=== PATIENT | male | born 1950 | race Caucasian/White ===

== ENCOUNTER → 2023-11-14 08:28 | Outpatient (CLI) | payer OTHER, SELFPAY ==
--- NOTE | 2023-11-14 | DI.ECHO.S_ITS ---
[facility]+ [facility] : : [address] : : [place] : : [id number] : : Phone: [phone] Echocardiogram Report + + :Name: GUSTAVO JALLOH Study Date: 11/14/2023 Height: 70 in : :Hospital ReadingLocation: Weight: 260 lb : : Gender: Male BSA: 2.3 m2 : :: 1950 Age: 73 yrs BP: 138/91 mmHg: :Reason For Study: SCREENING, AFIB : :Ordering Physician: PANTERA, : :DIAMOND Performed By: Lydia Golden : :Referring: NITA SAMSON : + + Interpretation Summary Moderately dilated left ventricle with ejection fraction 55-60%. Mildly dilated right ventricle with normal right ventricular systolic function. The left atrium is severely dilated. The right atrium is mildly dilated. The aortic valve is slightly calcified. Mild aortic regurgitation. Mild mitral regurgitation. The ascending aorta is mildly enlarged. Procedure: A two-dimensional transthoracic echocardiogram with color flow and Doppler was performed. The study quality was technically adequate. There is no prior echocardiogram noted for this patient. The patient was in atrial fibrillation with heart rates between 64-82 bpm during the exam. Left Ventricle: The left ventricle is moderately dilated. There is mild concentric left ventricular hypertrophy. The ejection fraction is estimated to be 55-60%. There are no focal wall motion abnormalities. Diastolic function could not be accurately assessed due to atrial fibrillation. Right Ventricle: The right ventricle is mildly dilated. The right ventricular systolic function is normal. Atria: The left atrium is severely dilated. The right atrium is mildly dilated. There is no Doppler evidence for an interatrial shunt. Mitral Valve: The mitral valve leaflets appear mildly thickened, but open well. There is mild mitral regurgitation. Aortic Valve: The aortic valve is trileaflet. The aortic valve is slightly calcified. There is mild aortic valve sclerosis. There is no aortic valve stenosis. There is mild aortic regurgitation. Tricuspid Valve: The tricuspid valve is normal in structure and function. There is trace tricuspid regurgitation. Pulmonary artery pressures cannot be estimated because of the lack of a measurable TR jet velocity. Pulmonic Valve: The pulmonic valve leaflets are thin and pliable; valve motion is normal. There is a trace or physiologic amount of pulmonic regurgitation. Great Vessels: The aortic root is normal size. The ascending aorta is mildly enlarged. The IVC is of normal diameter and collapses greater than 50% with a sniff. This suggests a low right atrial pressure of 3 mm Hg. Pericardium/ Pleura There is no pericardial effusion. There is no pleural effusion. MMode/2D Measurements & Calculations LVIDd: 7.0 cm LVOT diam: 2.3 cm LVIDs: 5.3 cm Ao root diam: 4.8 cm FS: 24.3 % asc Aorta Diam: 4.0 cm EPSS: 2.1 cm Ao Arch Diam (Prox Trans): 3.1 cm IVSd: 1.3 cm LVPWd: 1.4 cm LV wilcox. diameter/BSA (cm/m^2): 3.0 LV sys. diameter/BSA (cm/m^2): 2.3 LA A2 area: 35.2 cm2 RA long axis: 6.7 cm LA A4 area: 35.7 cm2 RA area: 26.5 cm2 LA length (vol): 7.9 cm RA vol: 88.7 ml LA vol: 135.6 ml RA : 38.0 ml/m2 LA vol index: 58.1 ml/m2 IVC diam: 2.0 cm RVD1 (basal): 4.7 cm RVD2 (mid): 3.3 cm TAPSE: 1.9 cm Doppler Measurements & Calculations Ao V2 max: 182.5 cm/sec LVOT Max Clyde: 77.5 cm/sec Ao V2 mean: 127.5 cm/sec LV V1 max P.4 mmHg Ao max P.3 mmHg LV V1 VTI: 16.0 cm Ao mean P.2 mmHg JAYSON(I,D): 1.8 cm2 Ao V2 VTI: 35.9 cm JAYSON(V,D): 1.7 cm2 sev ratio: 0.45 JAYSON indexed to BSA (cm^2/m^2): 0.77 MV E max clyde: 76.1 cm/sec PA V2 max: 77.5 cm/sec Med Peak E' Clyde: 5.3 cm/sec PA V2 mean: 53.4 cm/sec E/E' med: 14.4 PA mean P.3 mmHg Lat Peak E' Clyde: 14.5 cm/sec PA pr(Accel): 31.0 mmHg E/E' lat: 5.2 E/e' average: 9.8 MV dec time: 0.26 sec SV(LVOT): 64.3 ml Electronically signed by: Samuel Liao on Reading Physician:11/14/2023 12:54 PM
== END ==
PROVIDERS: Referring Provider Nurse Practitioner Family; Visit Provider Nurse Practitioner Family
DX: Z00.00 Encounter for general adult medical examination without abnormal findings (principal); I08.0 Rheumatic disorders of both mitral and aortic valves; I77.89 Other specified disorders of arteries and arterioles
CPT/HCPCS: 93306

== ENCOUNTER → 2024-02-14 09:13 | Outpatient (CLI) | payer OTHER, SELFPAY ==
--- NOTE | 2024-02-14 09:17 | DI.ECHO.S_ITS ---
[facility] +---------+ [facility] : : [address] : : [place] : : [id number] : : Phone: [phone] Echocardiogram Report + + :Name: SHUBHAM GUSTAVO Study Date: 02/14/2024 Height: 70 in : :Hospital ReadingLocation: Weight: 265 lb : : Gender: Male BSA: 2.4 m2 : :: 1950 Age: 73 yrs BP: 145/80 mmHg: :Reason For Study: ATRIAL FIBRILLATION : :Ordering Physician: RACHEL, : :GUSTAVO Performed By: Álvaro Elizabeth : :Referring: GUSTAVO RAMOS : + + Interpretation Summary 1. The left ventricular contractility is mildly compromised. Estimate ejection fraction is approximate 45 to 50% with global hypokinesis. Mild concentric LVH. Unable to comment on diastolic function. 2. The right ventricular contractility is normal. 3. Severe left atrial enlargement. Mild left ventricular dilatation. Mild to moderate right ventricular enlargement. The right atrium is of normal size. 4. Mild to moderate aortic insufficiency. 5. Mild mitral regurgitation. 6. Mild tricuspid regurgitation with estimated pulmonary systolic artery pressure of 32 mmHg. 6. No obvious intracardiac shunts. 7. No hemodynamically significant pericardial effusion. 8. Low right-sided filling pressures. 9. The aortic root and ascending aorta are dilated without obvious dissection. Conclusion: Mildly compromised left ventricular systolic function with dilated cardiomyopathy. Mild to moderate valvular insufficiency present. When compared with previous echocardiogram, there appears to be a decline in the left ventricular systolic function. Procedure: A two-dimensional transthoracic echocardiogram with color flow and Doppler was performed. The study quality was technically adequate. Comparison is made with the echocardiogram of 11/14/2023. The patient was in atrial fibrillation with heart rates between 61-88 bpm during the exam. Left Ventricle: Left ventricular wall thickness is mildly increased. The left ventricle is mildly dilated. The ejection fraction is estimated to be 45- 50%. Right Ventricle: The right ventricle is mild to moderately dilated. The right ventricular systolic function is normal. Atria: The left atrium is severely dilated. The right atrium is normal in size. The interatrial septum grossly appears intact with no obvious evidence for an atrial septal defect. Mitral Valve: The mitral valve is normal. There is no mitral valve stenosis. There is mild mitral regurgitation. Aortic Valve: The aortic valve is trileaflet. There is no aortic valve stenosis. There is mild to moderate aortic regurgitation. Tricuspid Valve: The tricuspid valve is normal. There is no tricuspid stenosis. There is mild tricuspid regurgitation. The right ventricular systolic pressure is estimated to be at least 31.8 mmHg based on an estimated right atrial pressure of 3 mm Hg. Pulmonic Valve: The pulmonic valve is not well visualized. There is no pulmonic valvular stenosis. There is trace pulmonic regurgitation. Great Vessels: The aortic root is moderately dilated. The ascending aorta is mildly enlarged. The IVC is of normal diameter and collapses greater than 50% with a sniff. This suggests a low right atrial pressure of 3 mm Hg. Pericardium/ Pleura There is no pericardial effusion. There is no pleural effusion. MMode/2D Measurements & Calculations LVIDd: 6.3 cm LVOT diam: 2.6 cm LVIDs: 4.7 cm Ao root diam: 4.5 cm FS: 25.2 % asc Aorta Diam: 3.8 cm IVSd: 1.4 cm LVPWd: 1.4 cm LV wilcox. diameter/BSA (cm/m^2): 2.7 LV sys. diameter/BSA (cm/m^2): 2.0 LA A2 area: 34.3 cm2 RA long axis: 5.3 cm LA A4 area: 32.0 cm2 RA area: 16.7 cm2 LA length (vol): 7.1 cm RA vol: 44.6 ml LA vol: 131.2 ml RA : 18.9 ml/m2 LA vol index: 55.8 ml/m2 IVC diam: 1.6 cm RVD1 (basal): 4.5 cm RVD2 (mid): 3.7 cm TAPSE: 2.0 cm Doppler Measurements & Calculations Ao V2 max: 196.6 cm/sec MV E max clyde: 84.1 cm/sec Ao V2 mean: 132.5 cm/sec MV A max clyde: 11.3 cm/sec Ao max P.9 mmHg MV E/A: 7.5 Ao mean P.2 mmHg Med Peak E' Clyde: 4.9 cm/sec Ao V2 VTI: 39.5 cm E/E' med: 17.3 Lat Peak E' Clyde: 6.9 cm/sec E/E' lat: 12.2 E/e' average: 14.7 MV dec time: 0.16 sec TR max clyde: 268.1 cm/sec TR max P.8 mmHg PA V2 max: 83.2 cm/sec PA V2 mean: 55.3 cm/sec PA mean P.4 mmHg PA pr(Accel): 31.0 mmHg Reading Physician:
== END ==
LOC: ECHO 09:15
PROVIDERS: PCP Internal Medicine; Referring Provider Chiropractor; Visit Provider Chiropractor
DX: I08.3 Combined rheumatic disorders of mitral, aortic and tricuspid valves (principal); I48.91 Unspecified atrial fibrillation; I77.810 Thoracic aortic ectasia; I77.89 Other specified disorders of arteries and arterioles
CPT/HCPCS: 93306

== ENCOUNTER → 2024-02-27 11:09 | Outpatient (CLI) | payer OTHER, SELFPAY ==
--- NOTE | 2024-02-27 11:17 | EKG_ITS ---
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
== END ==
LOC: RESP 11:09
PROVIDERS: PCP Internal Medicine; Referring Provider Chiropractor; Visit Provider Chiropractor
DX: I48.91 Unspecified atrial fibrillation (principal)
CPT/HCPCS: 93005